=== PATIENT | female | born 1940 | race Caucasian/White ===

== ENCOUNTER → 2016-08-24 | Outpatient (CLI) | payer MEDICARE, OTHER ==
[~2016-08-24] MED LIST: KLONOPIN TAB 00.5 MG PO
[2016-08-24 16:42] LABS: HEMOGLOBIN 13.9 gm/dl (12.3-15.3); RED BLOOD COUNT 4.7 M/UL (4.00-5.10); WHITE BLOOD COUNT 9.9 K/UL (4.5-11.0)
[2016-08-24 16:52] LABS: BUN/CREATININE RATIO 23 (0-10)
== END ==
LOC: LAB 16:05
PROVIDERS: Nurse Practitioner Family
DX: J45.901 Unspecified asthma with (acute) exacerbation (principal); J18.9 Pneumonia, unspecified organism
CPT/HCPCS: 36415; 36600; 71020; 80048; 82803; 83605; 85025

== ENCOUNTER → 2017-02-20 | Outpatient (CLI) | payer MEDICARE, OTHER | LOC: RAD 14:31 | DX: M54.5 Low back pain (principal); W19.XXXA Unspecified fall, initial encounter | CPT/HCPCS: 72110 ==

== ENCOUNTER → 2020-11-18 | Outpatient (CLI) | payer MEDICARE, OTHER | LOC: KOH-I 09:30 | DX: F07.81 Postconcussional syndrome (principal); R29.6 Repeated falls | CPT/HCPCS: 70450 ==

== ENCOUNTER → 2021-01-31 | Outpatient (CLI) | payer MEDICARE, OTHER | LOC: LAB 13:19 | DX: R30.0 Dysuria (principal) | CPT/HCPCS: 87077; 87086; 87186 ==

== ENCOUNTER 2021-02-21 13:51 | Inpatient (IN) | payer MEDICARE, OTHER ==
[~2021-02-21] VITALS: Ht 152.4 cm; Wt 47.6 kg
[2021-02-21 14:19] LABS: HEMOGLOBIN 13.7 gm/dl (12.3-15.3); RED BLOOD COUNT 4.7 M/UL (4.00-5.10); WHITE BLOOD COUNT 3.8 K/UL (4.5-11.0)
[2021-02-22 04:13] LABS: HEMOGLOBIN 12.8 gm/dl (12.3-15.3); RED BLOOD COUNT 4.35 M/UL (4.00-5.10)
[2021-02-22] MEDS ORDERED: VENTOLIN HFA 66.7 GM INH (11:57)
[2021-02-22] MEDS ORDERED: LIPITOR TAB 2020 MG PO (11:57)
[2021-02-22] MEDS ORDERED: ALL DAY ALLERGY10 MG PO (11:58)
[2021-02-22] MEDS ORDERED: SYMBICORT 16010.2 GM INH (11:58)
[2021-02-22] MEDS ORDERED: KLONOPIN1 MG PO (11:59)
[2021-02-22] MEDS ORDERED: RESTASIS 0.05%1 EACH EYEBOTH (11:59)
[2021-02-22] MEDS ORDERED: ARTHRITIS PAIN100 GM TOP (12:00)
[2021-02-22] MEDS ORDERED: CYMBALTA30 MG PO (12:01)
[2021-02-22] MEDS ORDERED: VITAMIN D21250 MCG PO (12:02)
[2021-02-22] MEDS ORDERED: NEXIUM40 MG PO (12:02)
[2021-02-22] MEDS ORDERED: FLONASE 0.05% N16 GM (12:03)
[2021-02-22] MEDS ORDERED: GLUCOTROL XL5 MG PO (12:04)
[2021-02-22] MEDS ORDERED: GABAPENTIN400 MG PO (12:04)
[2021-02-22] MEDS ORDERED: HYDROCODON-ACE1 EAC2 PO (12:05)
[2021-02-22] MEDS ORDERED: HYDROCHLOROTHIA25 MG PO (12:05)
[2021-02-22] MEDS ORDERED: ISOSORBIDE MONO30 MG PO (12:06)
[2021-02-22] MEDS ORDERED: VASCEPA1 GM PO (12:06)
[2021-02-22] MEDS ORDERED: HYDROXYZINE HCL25 MG PO (12:06)
[2021-02-22] MEDS ORDERED: DITROPAN XL10 MG PO (12:07)
[2021-02-22] MEDS ORDERED: METFORMIN HCL500 M2 PO (12:07)
[2021-02-22] MEDS ORDERED: MONTELUKAST SOD10 MG PO (12:07)
[2021-02-22] MEDS ORDERED: K-DUR TAB 20 M20 MEQ PO (12:08)
[2021-02-22] MEDS ORDERED: SARNA SENSITIV222 ML TP (12:08)
[2021-02-22] MEDS ORDERED: RANOLAZINE ER1000 MG PO (12:09)
[2021-02-22] MEDS ORDERED: KENALOG OINT 0.15 GM TOP (12:10)
[2021-02-22] MEDS ORDERED: CETAPHIL473 ML TP (12:10)
[2021-02-22] MEDS ORDERED: KETOCONAZOLE120 ML TP (12:11)
[2021-02-23 03:21] LABS: RED BLOOD COUNT 4.27 M/UL (4.00-5.10); WHITE BLOOD COUNT 2.7 K/UL (4.5-11.0)
[2021-02-23 04:03] LABS: BUN/CREATININE RATIO 20 (0-10)
[2021-02-24 07:04] LABS: HEMOGLOBIN 11.8 gm/dl (12.3-15.3); RED BLOOD COUNT 3.96 M/UL (4.00-5.10)
[2021-02-24 07:06] LABS: WHITE BLOOD COUNT 4.3 K/UL (4.5-11.0)
[2021-02-24 07:30] LABS: BUN/CREATININE RATIO 17 (0-10)
[2021-02-24 17:02] LABS: ACINETOBACTER BAUMANNII Not Detected (Negative); CANDIDA ALBICANS Not Detected (Negative); CANDIDA KRUSEI Not Detected (Negative); CANDIDA TROPICALIS Not Detected (Negative); ENTEROCOCCUS Not Detected (Negative); ESCHERICHIA COLI Not Detected (Negative); HAEMOPHILUS INFLUENZAE Not Detected (Negative); KLEBSIELLA OXYTOCA Not Detected (Negative); KLEBSIELLA PNEUMONIAE Not Detected (Negative); KPC-CARBAPENEM-RESISTANCE GENE Not Detected (Negative); PROTEUS Not Detected (Negative); PSEUDOMONAS AERUGINOSA Not Detected (Negative); SERRATIA MARCESANS Not Detected (Negative); STAPHYLOCOCCUS AUREUS Not Detected (Negative); STREP AGALACTIAE (GROUP B) Not Detected (Negative); STREP PYOGENES (GROUP A) Not Detected (Negative); STREPTOCOCCUS Not Detected (Negative); vanA/B (VANCOMYCIN RESIST GENE Not Detected (Negative)
[2021-02-24 18:35] LABS: STAPHYLOCOCCUS DETECTED (Negative); mecA (METHICILLIN RESIST GENE DETECTED (Negative)
--- NOTE | 2021-02-24 19:40 | NUR ---
NOTIFIED [facility] OF THE NEED FOR A TELEMETRY BOX AND CONTINUOUS PULSE OX CORD FOR THE PT. [facility] STATED THAT WE CURRENTLY DID NOT HAVE ANY PULSE OX CORDS AVAILABLE, BUT SHE WOULD ADD ME TO THE WAITING LIST.
[2021-02-25 08:56] LABS: HEMOGLOBIN 13.2 gm/dl (12.3-15.3)
[2021-02-25 08:57] LABS: RED BLOOD COUNT 4.36 M/UL (4.00-5.10); WHITE BLOOD COUNT 2.8 K/UL (4.5-11.0)
[2021-02-26 06:34] LABS: HEMOGLOBIN 13.4 gm/dl (12.3-15.3); RED BLOOD COUNT 4.42 M/UL (4.00-5.10); WHITE BLOOD COUNT 2.5 K/UL (4.5-11.0)
--- NOTE | 2021-02-26 19:23 | NUR ---
CT CAME AT 1923 AND SHE AND I BOTH WITNESSED VERBAL CONSENT GIVEN BY FAMILY MEMBER BO BARAJAS FOR IV CONTRAST FOR CT.
[2021-02-27 05:10] LABS: HEMOGLOBIN 12.6 gm/dl (12.3-15.3); RED BLOOD COUNT 4.2 M/UL (4.00-5.10)
--- NOTE | 2021-02-27 10:48 | NUR ---
Notified by tele of heart rate 38. Went to check on patient and observed patient lethargic and unable to follow verbal commands at this time. Dr. Valenzuela on floor and assessed patient. New orders entered per MD.
[2021-02-27 11:18] LABS: HEMOGLOBIN 11.6 gm/dl (12.3-15.3); RED BLOOD COUNT 3.87 M/UL (4.00-5.10); WHITE BLOOD COUNT 5.6 K/UL (4.5-11.0)
[2021-02-28 04:03] LABS: HEMOGLOBIN 11.6 gm/dl (12.3-15.3); RED BLOOD COUNT 3.85 M/UL (4.00-5.10); WHITE BLOOD COUNT 5.3 K/UL (4.5-11.0)
[2021-03-02 07:57] LABS: HEMOGLOBIN 12.6 gm/dl (12.3-15.3); RED BLOOD COUNT 4.2 M/UL (4.00-5.10); WHITE BLOOD COUNT 5.9 K/UL (4.5-11.0)
[2021-03-02] MEDS ORDERED: KEPPRA 500 MG500 MG PO (12:22)
[2021-03-02] MEDS ORDERED: OMNICEF 300 MG300 MG PO (12:22)
[2021-03-02] MEDS ORDERED: MEDROL DOSEPAK 24 MG PO (12:22)
--- NOTE | 2021-03-02 14:47 | NUR ---
PERFORMED OXYGEN SATURATION AT BEDSIDE WITH PT AT REST WITHOUT OXYGEN. PT STAYED AROUND 98% ON HER OXYGEN LEVELS.
--- NOTE | 2021-03-02 19:58 | NUR ---
CALLED AND ATTEMPTED TO GIVE REPORT ON THE PT, GRAEME MOSQUEAR. JEANETTE, WITH THE [facility] STATED THAT THE PT IS NOT IN THE REFERRAL SYSTEM. PT WILL NEED TO BE PLACED IN THE [facility] BEFORE SHE CAN HAVE SOMEONE OUT FOR HOME HEALTH. UNABLE TO GIVE REPORT DUE TO THIS. JEANETTE STATED THAT THE SENSOR TECHNICIAN WILL NEED TO PLACE THE PT IN [facility] SYSTEM BEFORE REPORT CAN BE GIVEN. NOTIFIED AND LEFT A MESSAGE FOR JANETH Salazar
== END 2021-03-02 17:12 | disposition home health service (06) | DRG 177 ==
LOC: ER1 13:51 → M/S 17:34 → CDU 17:34 → PROG CARE 02-22 16:12 → M/S 02-23 06:04
PROVIDERS: Physician Assistant Medical; Student in an Organized Health Care Education/Training Program; ADMIT Internal Medicine
PROC: XW033E5 Introduction of Remdesivir Anti-infective into Peripheral Vein, Percutaneous Approach, New Technology Group 5 (ICD-10-PCS; 2021-02-21)
PROC: 3E0333Z Introduction of Anti-inflammatory into Peripheral Vein, Percutaneous Approach (ICD-10-PCS; 2021-02-21)
PROC: B24BZZ4 Ultrasonography of Heart with Aorta, Transesophageal (ICD-10-PCS; principal; 2021-02-22)
PROC: 8E0ZXY6 Isolation (ICD-10-PCS; 2021-02-22)
PROC: 4A00X4Z Measurement of Central Nervous Electrical Activity, External Approach (ICD-10-PCS; 2021-03-01)
DX: U07.1 COVID-19 (principal); J12.82 Pneumonia due to coronavirus disease 2019; J96.01 Acute respiratory failure with hypoxia; J44.0 Chronic obstructive pulmonary disease with (acute) lower respiratory infection; D61.818 Other pancytopenia; G93.40 Encephalopathy, unspecified; I25.10 Atherosclerotic heart disease of native coronary artery without angina pectoris; D69.6 Thrombocytopenia, unspecified; K21.9 Gastro-esophageal reflux disease without esophagitis; I10 Essential (primary) hypertension; E11.9 Type 2 diabetes mellitus without complications; G40.909 Epilepsy, unspecified, not intractable, without status epilepticus; R94.31 Abnormal electrocardiogram [ECG] [EKG]; F41.9 Anxiety disorder, unspecified; E87.6 Hypokalemia; R00.1 Bradycardia, unspecified; G89.29 Other chronic pain; Z88.8 Allergy status to other drugs, medicaments and biological substances; Z88.6 Allergy status to analgesic agent; Z79.4 Long term (current) use of insulin
CPT/HCPCS: ECHO; 36415; 36600; 70450; 70551; 71045; 71275; 80048; 80053; 80202; 81001; 82140; 82550; 82553; 82803; 82962; 83036; 83605; 83735; 83880; 84100; 84132; 84439; 84443; 84484; 85025; 85027; 85379; 85610; 87040; 87077; 87086; 87150; 87186; 92507; 92526; 92610; 93005; 93306; 94640; 94664; 94760; 95819; 96365; 96368; 96376; 97110-GP-CQ; 97161; 97530; 97530-GP-CQ; 99285; G0378; G0480; J1100; J1335; J1650; J1940; J1953; J2060; J3370; J3475; J3480; J7030; J7070; Q9967; U0002